=== PATIENT | male | born 1970 | race African-American/Black ===

== ENCOUNTER 2017-01-29 13:53 | Emergency (ER) | payer SELFPAY ==
[~2017-01-29] VITALS: Ht 167.6 cm; Wt 70.0 kg
[2017-01-29 13:55] VITALS: BP 134/91; PULSE 47; RESP 12; TEMP 97.5; O2SAT 99
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
[2017-01-29] MEDS ORDERED: IBUPROFEN 800 MG TAB PO ONE (15:00)
[2017-01-29] MEDS ORDERED: METHOCARBAMOL 500 MG TAB PO ONE (15:15)
[2017-01-29] MEDS ORDERED: ROBA500T PO (15:15)
[2017-01-29] MEDS ORDERED: IBUP800T23 PO (15:15)
--- NOTE | 2017-01-29 15:28 | RADRPT ---
EXAM DATE/TIME: 01/29/2017 15:00 [facility] COMPARISON: No previous studies available for comparison. INDICATIONS : Left hip pain fall 3 weeks ago. MEDICAL HISTORY : None. SURGICAL HISTORY : None. ENCOUNTER: Initial ACUITY: 3 weeks PAIN SCORE: 7/10 LOCATION: Left hip FINDINGS: Examination of the left hip was performed with AP Pelvis. The primary and secondary trabecular patte rn of the femoral neck is intact. The hip joint is of normal width without significant sclerosis or bony hypertrophy. The acetabulum is grossly intact. CONCLUSION: No acute disease. John Schneider MD on January 29, 2017 at 15:25 Board Certified Radiologist. This report was verified electronically.
== END 2017-01-29 15:43 | disposition home or self-care (01) ==
LOC: NEPK 13:53
DX: M25.552 Pain in left hip (principal)
CPT/HCPCS: 73502; 99283; E0113